=== PATIENT | male | born 1950 | race Caucasian/White ===

== ENCOUNTER 2020-08-25 07:53 | Day surgery (SDC) | payer MEDICARE, MEDICAID, SELFPAY ==
[2020-08-19 08:15] VITALS: BMI 30.5
[2020-08-25 08:51] LABS: Coronavirus 19 IgG Antibody Negative (Negative); Coronavirus 19 IgM Antibody Negative (Negative)
[2020-08-25 09:27] VITALS: BP 131/90; PULSE 81; RESP 18; TEMP 36.6; O2SAT 96
[2020-08-25 10:04] VITALS: BP 152/86; PULSE 71; RESP 18; TEMP 36.6; O2SAT 96
== END 2020-08-25 10:20 | disposition home or self-care (01) ==
PROVIDERS: PCP Family Medicine; Visit Provider Ophthalmology
PROC: (CPT 66821; principal; 2020-08-25 09:00)
DX: Z88.0 Allergy status to penicillin; H26.492 Other secondary cataract, left eye; Z96.1 Presence of intraocular lens
CPT/HCPCS: 66821; 36415; 86328